=== PATIENT | female | born 1935 | race Caucasian/White ===

== ENCOUNTER 2018-12-28 14:56 | Emergency (ER) | payer MEDICARE, OTHER ==
[~2018-12-28] VITALS: Ht 172.7 cm; Wt 84.4 kg
[~2018-12-28 14:56] MED LIST: AMLODIPINE BESY10 MG PO; CLONIDINE HCL0.1 MG PO; LASIX20 MG PO; LEVOTHYROXINE50 MCG PO; LOSARTAN POTASS25 MG PO; LOSARTAN-HCTZ1 EACH PO; SERTRALINE HCL100 MG PO
--- NOTE | 2018-12-28 16:26 | Diagnostic Imaging Report ---
EXAMINATION: CHEST 2 VIEWS INDICATION: Cough, congestion, fever, chills, sore throat ^ORDER PLACED BY ^[id number] ^1550 ^Y COMPARISON: None FINDINGS: PA and lateral views TUBES and LINES: None. LUNGS: Lungs are well inflated. There is no evidence of pneumonia or pulmonary edema. PLEURA: No pleural effusion or pneumothorax. HEART AND MEDIASTINUM: The cardiomediastinal silhouette is unremarkable.. BONES AND SOFT TISSUES: No focal osseous lesions. Soft tissues are unremarkable. UPPER ABDOMEN: No free air under the diaphragm. IMPRESSION: No acute thoracic abnormality. Signed by: Dr. Damian Fisher MD on 12/28/2018 4:22 PM
[2018-12-28 16:38] LABS: BASOPHILS % 0.3 % (0.0-1.0); EOSINOPHILS # (AUTO) 0.1 (0.0-0.4); EOSINOPHILS % 0.6 % (0.0-6.0); HEMATOCRIT 40.1 % (34.2-44.1); HEMOGLOBIN 13.2 g/dL (12.0-16.0); LYMPHOCYTES # (AUTO) 1.7 (1.0-3.2); LYMPHOCYTES % 19.1 % (18.0-39.1); MEAN CORPUSCULAR HEMOGLOBIN 29.3 pg (28-32); MEAN CORPUSCULAR HGB CONC 32.9 g/dL (31-35); MEAN CORPUSCULAR VOLUME 89.1 fL (81-99); MONOCYTES # (AUTO) 1.3 (0.2-0.8); MONOCYTES % 14.4 % (4.4-11.3); NEUTROPHILS # (AUTO) 5.9 (2.1-6.9); NEUTROPHILS % 65.4 % (38.7-80.0); PLATELET COUNT 207 x10e3/uL (140-360); RED CELL DISTRIBUTION WIDTH 12.6 % (11.7-14.4)
[2018-12-28 16:51] LABS: INR 1.03
[2018-12-28 16:52] LABS: PARTIAL THROMBOPLASTIN TIME 33.2 seconds (23.8-35.5)
[2018-12-28 17:03] LABS: ALBUMIN 3.2 g/dL (3.5-5.0); ALBUMIN/GLOBULIN RATIO 0.8 (0.8-2.0); ANION GAP 12.7 mmol/L (8-16); CALCIUM 9.9 mg/dL (8.4-10.2); CREATININE, SERUM 0.99 mg/dL (0.57-1.11); POTASSIUM 3.7 mmol/L (3.5-5.1)
[2018-12-28 17:10] LABS: CREATINE KINASE MB 2.5 ng/mL (0-5.0)
[2018-12-28 17:14] LABS: INFLUENZAE A&B ANTIGEN (RAPID) NEGATIVE (NEGATIVE); STREPTOCOCCUS GRP A ANTIGEN NEGATIVE (NEGATIVE)
[2018-12-28 18:28] VITALS: BP 170/77
[2018-12-28] MEDS ORDERED: PREDNISONE 20 MG TAB PO ONE (18:30)
== END 2018-12-28 18:34 | disposition home or self-care (01) ==
LOC: ER 14:56
DX: R05 Cough (principal); J02.9 Acute pharyngitis, unspecified; E07.9 Disorder of thyroid, unspecified
CPT/HCPCS: 36415; 71046; 80053; 82550; 82553; 83518; 84484; 85025; 85610; 85730; 87070; 87400; 93005; 99283; J7512

== ENCOUNTER 2019-08-05 12:49 | Emergency (ER) | payer OTHER ==
[~2019-08-05] VITALS: Ht 172.7 cm; Wt 84.4 kg
--- OUTSIDE RECORDS SUMMARY | 2019-08-05 12:52 | XMS REPORT ---
Author Author [facility] Address Unknown Phone Unavailable Care Team Providers [employer] Operator Name Role Phone Shakeel GAONA Unavailable Unavailable Problems This patient has no known problems. Allergies, Adverse Reactions, Alerts This patient has no known allergies or adverse reactions. Medications This patient has no known medications. Results Test Description Test Time Test Comments Text Results Atomic Results Result Comments CHEST 2 VIEWS 2018-12-28 16:19:00 [place] [id number] Patient Name: GERALDINE HEBERT MR #: [id number] : 1935 Age/Sex: 83/F Req #: [id number] Adm Physician: Ordered by: EWA BALL NP Report #: [id number] Location: ER Room/Bed: Procedure: [id number] DX/CHEST 2 VIEWS Exam Date: 12/28/18 Exam Time: 1550 REPORT STATUS: Signed EXAMINATION: CHEST 2 VIEWS INDICATION: Cough, conge stion, fever, chills, sore throat ORDER PLACED BY [id number] 1550 Y COMPARISON: None FINDINGS: PA and lateral views TUBES and LINES: None. LUNGS: Lungs are well inflated. There is no evidence of pneumonia or pulmonary edema. PLEURA: No pleural effusion or pneumothorax. HEART AND MEDIASTINUM: The cardiomediastinal silhouette is unremarkable.. BONES AND SOFT TISSUES: No focal osseous lesions. Soft tissues are unremarkable. UPPER ABDOMEN: No free air under the diaphragm. IMPRESSION: No acute thoracic abnormality. Signed by: Dr. Ed Fisher MD on 12/28/2018 4:22 PM Dictated By: ED FISHER MD 21 Transcribed By: MITALI on 12/28/181621 COPY TO: EWA BALL NP
[2019-08-05] MEDS ORDERED: SODIUM CHLORIDE 0.9% 1000ML 1,000 ML IV STA (13:04)
--- NOTE | 2019-08-05 14:36 | Diagnostic Imaging Report ---
Chest, 1 view, 08/05/2019. History: Hypertension. Comparison: 12/28/2018. Findings: The cardiomediastinal silhouette and pulmonary vasculature are within normal limits for a portable exam. There is no focal consolidation or pleural effusion. Mild degenerative changes are noted in the shoulders. There are no acute osseous or soft tissue abnormalities. Impression: No acute cardiopulmonary abnormality. Signed by: Karl Regan on 08/05/2019 2:32 PM
[2019-08-05 14:40] LABS: BASOPHILS % 0.3 % (0.0-1.0); EOSINOPHILS # (AUTO) 0.1 (0.0-0.4); HEMATOCRIT 42.8 % (34.2-44.1); HEMOGLOBIN 13.8 g/dL (12.0-16.0); LYMPHOCYTES # (AUTO) 1.8 (1.0-3.2); LYMPHOCYTES % 29.8 % (18.0-39.1); MEAN CORPUSCULAR HEMOGLOBIN 29.1 pg (28-32); MEAN CORPUSCULAR HGB CONC 32.2 g/dL (31-35); MEAN CORPUSCULAR VOLUME 90.1 fL (81-99); MONOCYTES # (AUTO) 0.6 (0.2-0.8); MONOCYTES % 10.5 % (4.4-11.3); NEUTROPHILS # (AUTO) 3.5 (2.1-6.9); NEUTROPHILS % 58.1 % (38.7-80.0); PLATELET COUNT 204 x10e3/uL (140-360); RED BLOOD COUNT 4.75 x10e6/uL (3.6-5.1); RED CELL DISTRIBUTION WIDTH 13.1 % (11.7-14.4)
[2019-08-05 14:49] LABS: INR 0.93
[2019-08-05 14:50] LABS: PARTIAL THROMBOPLASTIN TIME 31.1 seconds (23.8-35.5)
[2019-08-05 14:58] LABS: ALBUMIN 3.8 g/dL (3.5-5.0); ALBUMIN/GLOBULIN RATIO 1.2 (0.8-2.0); ANION GAP 12.5 mmol/L (8-16); CALCIUM 11.3 mg/dL (8.4-10.2); CREATININE, SERUM 0.91 mg/dL (0.57-1.11); MAGNESIUM 2.1 MG/DL (1.3-2.1); POTASSIUM 3.5 mmol/L (3.5-5.1)
[2019-08-05 15:17] LABS: CREATINE KINASE MB 1.7 ng/mL (0-5.0); THYROID STIMULATING HORMONE 0.877 uIU/mL (0.350-4.940)
== END 2019-08-05 16:29 | disposition home or self-care (01) ==
LOC: ER 12:49
DX: M25.471 Effusion, right ankle (principal); I87.2 Venous insufficiency (chronic) (peripheral); I10 Essential (primary) hypertension; Z85.850 Personal history of malignant neoplasm of thyroid
CPT/HCPCS: 36415; 71045; 80053; 82550; 82553; 83690; 83735; 83880; 84443; 84484; 85025; 85610; 85730; 93005; 93970; 99284; J7030

== ENCOUNTER 2021-03-31 19:13 | Inpatient (IN) | payer MEDICARE ==
[~2021-03-31] VITALS: Ht 172.7 cm; Wt 84.4 kg
[2021-03-31 19:28] LABS: BASOPHILS % 0.4 % (0.0-1.0); EOSINOPHILS # (AUTO) 0.1 (0.0-0.4); EOSINOPHILS % 0.9 % (0.0-6.0); HEMATOCRIT 42.7 % (34.2-44.1); HEMOGLOBIN 13.5 g/dL (12.0-16.0); LYMPHOCYTES # (AUTO) 3.8 (1.0-3.2); LYMPHOCYTES % 39.5 % (18.0-39.1); MEAN CORPUSCULAR HEMOGLOBIN 28.6 pg (28-32); MEAN CORPUSCULAR HGB CONC 31.6 g/dL (31-35); MEAN CORPUSCULAR VOLUME 90.5 fL (81-99); MONOCYTES # (AUTO) 0.9 (0.2-0.8); MONOCYTES % 9.2 % (4.4-11.3); NEUTROPHILS # (AUTO) 4.7 (2.1-6.9); NEUTROPHILS % 49.6 % (38.7-80.0); PLATELET COUNT 211 x10e3/uL (140-360); RED BLOOD COUNT 4.72 x10e6/uL (3.6-5.1); RED CELL DISTRIBUTION WIDTH 13.6 % (11.7-14.4)
[2021-03-31 19:44] LABS: INR 0.88; PROTHROMBIN TIME 12.5 seconds (11.9-14.5)
[2021-03-31 19:48] LABS: ALBUMIN 3.9 g/dL (3.5-5.0); ALBUMIN/GLOBULIN RATIO 1.3 (0.8-2.0); ANION GAP 14.2 mmol/L (8-16); CALCIUM 10.5 mg/dL (8.4-10.2); POTASSIUM 4.2 mmol/L (3.5-5.1)
[2021-03-31 19:54] LABS: CREATINE KINASE MB 1.4 ng/mL (0-5.0)
[2021-03-31 22:53] VITALS: BP 166/82
[2021-03-31] MEDS ORDERED: CLONIDINE HCL 0.1 MG TAB PO SCH (23:00)
[2021-03-31] MEDS ORDERED: CLONIDINE HCL0.2 MG PO (23:13)
[2021-03-31] MEDS ORDERED: LASIX20 MG PO (23:14)
[2021-03-31] MEDS ORDERED: SERTRALINE HCL50 MG PO (23:19)
[2021-03-31] MEDS: Pantoprazole IV 40 MG in SODIUM CHLORIDE 0.9% 50ML 50 ML IV SCH (23:44)
[2021-04-01] VITALS (7 sets, daily range): BP systolic 150–166; BP diastolic 64–82
[2021-04-01 02:39] LABS: BASOPHILS % 0.3 % (0.0-1.0); EOSINOPHILS % 0.2 % (0.0-6.0); HEMATOCRIT 36.3 % (34.2-44.1); HEMOGLOBIN 11.3 g/dL (12.0-16.0); LYMPHOCYTES # (AUTO) 1.7 (1.0-3.2); LYMPHOCYTES % 18.4 % (18.0-39.1); MEAN CORPUSCULAR HEMOGLOBIN 28.3 pg (28-32); MEAN CORPUSCULAR HGB CONC 31.1 g/dL (31-35); MONOCYTES # (AUTO) 0.6 (0.2-0.8); MONOCYTES % 6.9 % (4.4-11.3); NEUTROPHILS # (AUTO) 6.9 (2.1-6.9); NEUTROPHILS % 73.7 % (38.7-80.0); PLATELET COUNT 166 x10e3/uL (140-360); RED BLOOD COUNT 3.99 x10e6/uL (3.6-5.1); RED CELL DISTRIBUTION WIDTH 13.7 % (11.7-14.4)
[2021-04-01] MEDS ORDERED: ONDANSETRON HCL INJ 2MG/ML 2ML 2 MG/ML VIAL IV PRN (03:00)
[2021-04-01] MEDS: Pantoprazole IV 40 MG in SODIUM CHLORIDE 0.9% 50ML 50 ML IV SCH ×5 (03:30→23:45)
[2021-04-01] MEDS ORDERED: BISACODYL 5 MG TAB EC PO ONE ×2 (04:00→05:00)
[2021-04-01 04:03] LABS: ALBUMIN 3.3 g/dL (3.5-5.0); ALBUMIN/GLOBULIN RATIO 1.3 (0.8-2.0); ANION GAP 11.5 mmol/L (8-16); CREATININE, SERUM 0.9 mg/dL (0.57-1.11); POTASSIUM 4.5 mmol/L (3.5-5.1)
[2021-04-01] MEDS ORDERED: ASPIRIN81 MG PO (04:14)
[2021-04-01] MEDS: LEVOTHYROXINE SODIUM 100 MCG TAB PO SCH (05:14)
[2021-04-01] MEDS: LEVOTHYROXINE SODIUM 75 MCG TAB PO SCH (05:14)
[2021-04-01] MEDS ORDERED: CITRATE OF MAGNESIA 300ML BOTTLE PO ONE ×2 (07:00→08:00)
[2021-04-01] MEDS: CLONIDINE HCL 0.2 MG TAB PO SCH ×3 (08:08→20:34)
[2021-04-01 10:39] LABS: HEMATOCRIT 34.8 % (34.2-44.1); HEMOGLOBIN 10.8 g/dL (12.0-16.0)
[2021-04-01 12:31] LABS: HEMATOCRIT 32.9 % (34.2-44.1); HEMOGLOBIN 10.4 g/dL (12.0-16.0)
[2021-04-01] MEDS ORDERED: PROPOFOL IV EMULSION 10 MG/ML 20 ML VIAL ONE (12:33)
[2021-04-01] MEDS ORDERED: POVIDONE IODINE 0.05% 0.05 % ML PO ONE (12:33)
[2021-04-01] MEDS ORDERED: ATROPINE SULFATE 1 MG/ML VIAL ONE (12:33)
[2021-04-01] MEDS ORDERED: SIMETHICONE 40 MG/0.6 ML BTL ONE (17:01)
[2021-04-01 19:52] LABS: HEMATOCRIT 31.1 % (34.2-44.1); HEMOGLOBIN 9.7 g/dL (12.0-16.0)
[2021-04-01] MEDS ORDERED: SERTRALINE HCL 100 MG TAB PO SCH (21:00)
[2021-04-01] MEDS ORDERED: SODIUM CHLORIDE 0.9% 250ML 250 ML ONE (22:05)
[2021-04-02] MEDS: Pantoprazole IV 40 MG in SODIUM CHLORIDE 0.9% 50ML 50 ML IV SCH ×4 (04:45→20:44)
[2021-04-02 05:06] LABS: HEMATOCRIT 24.6 % (34.2-44.1); HEMOGLOBIN 7.8 g/dL (12.0-16.0)
[2021-04-02] MEDS: LEVOTHYROXINE SODIUM 100 MCG TAB PO SCH (05:27)
[2021-04-02] MEDS: LEVOTHYROXINE SODIUM 75 MCG TAB PO SCH (05:27)
[2021-04-02] MEDS ORDERED: SODIUM CHLORIDE 0.9% 250ML 250 ML IV ONE (07:30)
[2021-04-02 08:21] LABS: INR 1.11; PARTIAL THROMBOPLASTIN TIME 27.5 seconds (23.8-35.5); PROTHROMBIN TIME 14.9 seconds (11.9-14.5)
[2021-04-02] MEDS ORDERED: METHYLPREDNISOLONE SOD SUCC 40 MG/ML VIAL 1ML IV ONE (08:30)
[2021-04-02] MEDS ORDERED: DIPHENHYDRAMINE HCL INJ 50 MG/ML VIAL IV ONE (08:30)
[2021-04-02] MEDS: CLONIDINE HCL 0.2 MG TAB PO SCH ×3 (09:00→20:45)
[2021-04-02] MEDS ORDERED: HEPARIN SOD (PORCINE) 1000 UNIT/ML SDV ONE (11:30)
[2021-04-02] MEDS ORDERED: METHYLPREDNISOLONE SOD SUCC 40 MG/ML VIAL 1ML IV SCH ×2 (12:30→17:00)
[2021-04-02 13:29] LABS: HEMOGLOBIN 8.5 g/dL (12.0-16.0)
[2021-04-02] MEDS ORDERED: SODIUM CHLORIDE 0.9% 250ML 250 ML ONE (13:52)
[2021-04-03] MEDS ORDERED: PREDNISONE 20 MG TAB PO ONE
[2021-04-03] MEDS: HYDRALAZINE HCL 20 MG/ML VIAL IV PRN (00:19)
[2021-04-03 00:27] LABS: HEMATOCRIT 30.9 % (34.2-44.1)
[2021-04-03] MEDS ORDERED: PHYTONADIONE 10MG/ML 20 MG in SODIUM CHLORIDE 0.9% 100 ML IV ONE ×2 (00:45→09:00)
[2021-04-03] MEDS ORDERED: PHYTONADIONE 10 MG/ML AMP IV ONE (00:45)
[2021-04-03] MEDS: Pantoprazole IV 40 MG in SODIUM CHLORIDE 0.9% 50ML 50 ML IV SCH ×5 (01:12→20:45)
[2021-04-03 05:11] LABS: HEMATOCRIT 30.6 % (34.2-44.1); HEMOGLOBIN 10.1 g/dL (12.0-16.0); LYMPHOCYTES # (AUTO) 0.9 (1.0-3.2); LYMPHOCYTES % 11.1 % (18.0-39.1); MEAN CORPUSCULAR HEMOGLOBIN 28.8 pg (28-32); MEAN CORPUSCULAR VOLUME 87.2 fL (81-99); MONOCYTES # (AUTO) 0.2 (0.2-0.8); MONOCYTES % 2.4 % (4.4-11.3); NEUTROPHILS # (AUTO) 7.2 (2.1-6.9); NEUTROPHILS % 85.5 % (38.7-80.0); PLATELET COUNT 179 x10e3/uL (140-360); RED BLOOD COUNT 3.51 x10e6/uL (3.6-5.1)
[2021-04-03 05:22] LABS: BLOOD UREA NITROGEN 21 mg/dL (7-26); BUN/CREATININE RATIO 26 (6-25); CALCIUM 9.5 mg/dL (8.4-10.2); CARBON DIOXIDE 21 mmol/L (22-29); CHLORIDE 112 mmol/L (98-107); CREATININE, SERUM 0.81 mg/dL (0.57-1.11); EST GLOMERULAR FILTRATION RATE > 60 ML/MIN (60-); GLUCOSE 149 mg/dL (74-118); SODIUM 143 mmol/L (136-145)
[2021-04-03] MEDS: LEVOTHYROXINE SODIUM 75 MCG TAB PO SCH (05:57)
[2021-04-03] MEDS: LEVOTHYROXINE SODIUM 100 MCG TAB PO SCH (05:57)
[2021-04-03] MEDS: CLONIDINE HCL 0.2 MG TAB PO SCH ×3 (08:38→21:00)
[2021-04-03] MEDS ORDERED: PHYTONADIONE 10 MG/ML AMP IV SCH (09:00)
[2021-04-03] MEDS ORDERED: DIPHENHYDRAMINE HCL 25 MG CAP PO ONE (10:15)
[2021-04-03 13:03] LABS: HEMATOCRIT 31.4 % (34.2-44.1); HEMOGLOBIN 10.1 g/dL (12.0-16.0)
[2021-04-04] MEDS ORDERED: SODIUM CHLORIDE 0.9% 100 ML ONE ×2 (01:00→17:01)
[2021-04-04] MEDS ORDERED: PHYTONADIONE 10MG/ML 2 ML ONE (01:00)
[2021-04-04] MEDS: Pantoprazole IV 40 MG in SODIUM CHLORIDE 0.9% 50ML 50 ML IV SCH ×5 (01:45→21:58)
[2021-04-04] MEDS: LEVOTHYROXINE SODIUM 75 MCG TAB PO SCH (06:00)
[2021-04-04] MEDS: LEVOTHYROXINE SODIUM 100 MCG TAB PO SCH (06:00)
[2021-04-04] MEDS: CLONIDINE HCL 0.2 MG TAB PO SCH ×3 (09:00→21:41)
[2021-04-04] MEDS ORDERED: HYDROCORTISONE SOD SUCCINATE IV ONE ×2 (11:00→15:00)
[2021-04-04] MEDS ORDERED: SODIUM CHLORIDE 0.9% IV ONE ×2 (11:00→15:00)
[2021-04-04] MEDS ORDERED: HYDROCORTISONE SOD SUCCINATE 100 MG VIAL ONE (11:07)
[2021-04-04] MEDS ORDERED: HYDROCORTISONE SOD SUCCINATE 250 MG VIAL IV ONE ×2 (11:45→16:00)
[2021-04-04 12:21] LABS: HEMATOCRIT 26.1 % (34.2-44.1); HEMOGLOBIN 8.6 g/dL (12.0-16.0)
[2021-04-04] MEDS ORDERED: DIPHENHYDRAMINE HCL INJ 50 MG/ML VIAL IV ONE (16:00)
[2021-04-04 16:22] VITALS: BP 123/54
[2021-04-04 16:27] LABS: HEMATOCRIT 31.2 % (34.2-44.1)
[2021-04-04] MEDS ORDERED: IOPAMIDOL 370 MG/ML 200 ML INFUS..BTL INJ ONE (17:01)
[2021-04-04 18:26] LABS: HEMATOCRIT 26.3 % (34.2-44.1); HEMOGLOBIN 8.4 g/dL (12.0-16.0)
[2021-04-04 19:40] VITALS: BP 145/61
[2021-04-04 20:25] VITALS: BP 145/61
[2021-04-04 23:37] VITALS: BP 146/66
[2021-04-05] VITALS (8 sets, daily range): BP systolic 126–173; BP diastolic 50–71
[2021-04-05 00:36] LABS: HEMATOCRIT 27.4 % (34.2-44.1); HEMOGLOBIN 8.6 g/dL (12.0-16.0)
[2021-04-05] MEDS: Pantoprazole IV 40 MG in SODIUM CHLORIDE 0.9% 50ML 50 ML IV SCH (04:22)
[2021-04-05 05:38] LABS: HEMATOCRIT 24.2 % (34.2-44.1); HEMOGLOBIN 7.7 g/dL (12.0-16.0)
[2021-04-05] MEDS: LEVOTHYROXINE SODIUM 75 MCG TAB PO SCH (06:04)
[2021-04-05] MEDS: LEVOTHYROXINE SODIUM 100 MCG TAB PO SCH (06:04)
[2021-04-05 06:09] LABS: INR 1.09; PROTHROMBIN TIME 14.8 seconds (11.9-14.5)
[2021-04-05 06:11] LABS: % IRON SATURATION 10 % (15-50); IRON 21 ug/dL (50-170); TOTAL IRON BINDING CAPACITY 218 ug/dL (261-478); TRANSFERRIN 156 mg/dL (180-382)
[2021-04-05] MEDS: IRON SUCROSE 100 MG in SODIUM CHLORIDE 0.9% 100 ML 100 ML IV SCH (10:05)
[2021-04-05] MEDS: CLONIDINE HCL 0.2 MG TAB PO SCH ×3 (10:05→20:27)
[2021-04-05] MEDS: ALPRAZOLAM 0.25 MG TAB PO PRN (14:10)
[2021-04-05 15:30] LABS: HEMATOCRIT 26.4 % (34.2-44.1); HEMOGLOBIN 8.4 g/dL (12.0-16.0)
[2021-04-05] MEDS ORDERED: PHYTONADIONE 10MG/ML 20 MG in SODIUM CHLORIDE 0.9% 100 ML IV ONE (23:45)
[2021-04-05] MEDS ORDERED: PHYTONADIONE 10 MG/ML AMP IV ONE (23:45)
[2021-04-06] VITALS (7 sets, daily range): BP systolic 128–166; BP diastolic 63–66
[2021-04-06 05:11] LABS: BASOPHILS % 0.3 % (0.0-1.0); EOSINOPHILS # (AUTO) 0.2 (0.0-0.4); EOSINOPHILS % 2.5 % (0.0-6.0); HEMATOCRIT 23.7 % (34.2-44.1); HEMOGLOBIN 7.5 g/dL (12.0-16.0); LYMPHOCYTES # (AUTO) 1.4 (1.0-3.2); LYMPHOCYTES % 19.9 % (18.0-39.1); MEAN CORPUSCULAR HEMOGLOBIN 29.3 pg (28-32); MEAN CORPUSCULAR HGB CONC 31.6 g/dL (31-35); MEAN CORPUSCULAR VOLUME 92.6 fL (81-99); MONOCYTES # (AUTO) 0.9 (0.2-0.8); MONOCYTES % 12.7 % (4.4-11.3); NEUTROPHILS # (AUTO) 4.5 (2.1-6.9); NEUTROPHILS % 63.9 % (38.7-80.0); PLATELET COUNT 162 x10e3/uL (140-360); RED BLOOD COUNT 2.56 x10e6/uL (3.6-5.1); RED CELL DISTRIBUTION WIDTH 14.7 % (11.7-14.4)
[2021-04-06 05:27] LABS: ANION GAP 9.1 mmol/L (8-16); CALCIUM 9.5 mg/dL (8.4-10.2); CREATININE, SERUM 0.93 mg/dL (0.57-1.11); POTASSIUM 4.1 mmol/L (3.5-5.1)
[2021-04-06] MEDS: LEVOTHYROXINE SODIUM 100 MCG TAB PO SCH (05:39)
[2021-04-06] MEDS: LEVOTHYROXINE SODIUM 75 MCG TAB PO SCH (05:39)
[2021-04-06] MEDS ORDERED: PHYTONADIONE 10MG/ML 20 MG in SODIUM CHLORIDE 0.9% 50ML 50 ML IV ONE (07:30)
[2021-04-06] MEDS ORDERED: PHYTONADIONE 10 MG/ML AMP IV ONE (07:30)
[2021-04-06] MEDS: PANTOPRAZOLE SOD 40 MG TABEC PO SCH (08:35)
[2021-04-06] MEDS: CLONIDINE HCL 0.2 MG TAB PO SCH ×3 (08:36→21:51)
[2021-04-06] MEDS: ALPRAZOLAM 0.25 MG TAB PO PRN (08:36)
[2021-04-06] MEDS ORDERED: IRON SUCROSE 100 MG in SODIUM CHLORIDE 0.9% 100 ML 100 ML IV SCH (09:00)
[2021-04-06] MEDS: NIFEDIPINE CR 30 MG TAB PO SCH (11:03)
[2021-04-06] MEDS: IRON SUCROSE 100 MG in SODIUM CHLORIDE 0.9% 100 ML 100 ML IV SCH (11:03)
[2021-04-07] VITALS (7 sets, daily range): BP systolic 132–178; BP diastolic 53–68
[2021-04-07] MEDS ORDERED: PHYTONADIONE 10MG/ML 20 MG in SODIUM CHLORIDE 0.9% 100 ML 100 ML IV ONE (00:20)
[2021-04-07] MEDS ORDERED: PHYTONADIONE 10 MG/ML AMP IV ONE (00:20)
[2021-04-07] MEDS ORDERED: PHYTONADIONE 10MG/ML 20 MG in SODIUM CHLORIDE 0.9% 100 ML IV ONE (00:30)
[2021-04-07 05:29] LABS: BASOPHILS % 0.2 % (0.0-1.0); EOSINOPHILS # (AUTO) 0.3 (0.0-0.4); EOSINOPHILS % 3.3 % (0.0-6.0); HEMATOCRIT 24.9 % (34.2-44.1); HEMOGLOBIN 7.9 g/dL (12.0-16.0); LYMPHOCYTES % 22.9 % (18.0-39.1); MEAN CORPUSCULAR HEMOGLOBIN 29.9 pg (28-32); MEAN CORPUSCULAR HGB CONC 31.7 g/dL (31-35); MEAN CORPUSCULAR VOLUME 94.3 fL (81-99); MONOCYTES % 11.2 % (4.4-11.3); NEUTROPHILS # (AUTO) 5.3 (2.1-6.9); NEUTROPHILS % 61.6 % (38.7-80.0); PLATELET COUNT 172 x10e3/uL (140-360); RED BLOOD COUNT 2.64 x10e6/uL (3.6-5.1)
[2021-04-07] MEDS: LEVOTHYROXINE SODIUM 100 MCG TAB PO SCH (05:58)
[2021-04-07] MEDS: LEVOTHYROXINE SODIUM 75 MCG TAB PO SCH (05:58)
[2021-04-07 06:00] LABS: ANION GAP 7.6 mmol/L (8-16); CREATININE, SERUM 0.84 mg/dL (0.57-1.11); POTASSIUM 3.6 mmol/L (3.5-5.1)
[2021-04-07] MEDS ORDERED: CYANOCOBALAMIN INJ 1,000 MCG/ML VIAL IM ONE (08:00)
[2021-04-07] MEDS: PANTOPRAZOLE SOD 40 MG TABEC PO SCH (08:24)
[2021-04-07] MEDS: NIFEDIPINE CR 30 MG TAB PO SCH (08:25)
[2021-04-07] MEDS: CLONIDINE HCL 0.2 MG TAB PO SCH ×3 (08:25→21:01)
[2021-04-07] MEDS: IRON SUCROSE 100 MG in SODIUM CHLORIDE 0.9% 100 ML 100 ML IV SCH (10:38)
[2021-04-07 17:54] LABS: HEMATOCRIT 25.9 % (34.2-44.1); HEMOGLOBIN 8.2 g/dL (12.0-16.0)
[2021-04-07] MEDS: SERTRALINE HCL 50 MG TAB PO PRN (21:45)
[2021-04-07] MEDS ORDERED: SODIUM CHLORIDE 0.9% 250ML 0 ML ONE (22:14)
[2021-04-08] VITALS (8 sets, daily range): BP systolic 145–167; BP diastolic 62–86
[2021-04-08] MEDS ORDERED: HYDROCORTISONE ACETATE 25 MG/SUPP.RECT SUPP RC STA (00:22)
[2021-04-08 05:45] LABS: BASOPHILS % 0.2 % (0.0-1.0); EOSINOPHILS # (AUTO) 0.2 (0.0-0.4); EOSINOPHILS % 3.2 % (0.0-6.0); LYMPHOCYTES # (AUTO) 1.3 (1.0-3.2); LYMPHOCYTES % 19.9 % (18.0-39.1); MEAN CORPUSCULAR VOLUME 93.8 fL (81-99); MONOCYTES # (AUTO) 0.8 (0.2-0.8); MONOCYTES % 12.2 % (4.4-11.3); NEUTROPHILS % 63.9 % (38.7-80.0); PLATELET COUNT 141 x10e3/uL (140-360); RED BLOOD COUNT 2.24 x10e6/uL (3.6-5.1)
[2021-04-08 05:48] LABS: HEMOGLOBIN 6.5 g/dL (12.0-16.0)
[2021-04-08] MEDS: LEVOTHYROXINE SODIUM 75 MCG TAB PO SCH (05:54)
[2021-04-08] MEDS: LEVOTHYROXINE SODIUM 100 MCG TAB PO SCH (05:54)
[2021-04-08 06:42] LABS: HEMOGLOBIN 6.8 g/dL (12.0-16.0)
[2021-04-08 06:43] LABS: HEMATOCRIT 21.6 % (34.2-44.1)
[2021-04-08] MEDS ORDERED: SODIUM CHLORIDE 0.9% 250ML 250 ML IV ONE (06:45)
[2021-04-08] MEDS: CLONIDINE HCL 0.2 MG TAB PO SCH ×3 (08:05→21:08)
[2021-04-08] MEDS: PANTOPRAZOLE SOD 40 MG TABEC PO SCH (08:05)
[2021-04-08] MEDS: NIFEDIPINE CR 30 MG TAB PO SCH (08:05)
[2021-04-08] MEDS: HYDROCORTISONE ACETATE 25 MG/SUPP.RECT SUPP RC SCH ×2 (08:05→16:19)
[2021-04-08] MEDS: IRON SUCROSE 100 MG in SODIUM CHLORIDE 0.9% 100 ML 100 ML IV SCH (09:07)
[2021-04-08] MEDS ORDERED: SODIUM CHLORIDE 0.9% 250ML 250 ML ONE (11:16)
[2021-04-08] MEDS ORDERED: METHYLPREDNISOLONE SOD SUCC 40 MG/ML VIAL 1ML IV NR ×2 (13:45→15:00)
[2021-04-08] MEDS: ALPRAZOLAM 0.25 MG TAB PO PRN (15:43)
[2021-04-08] MEDS: FUROSEMIDE INJ 10 MG/ML 2 ML VIAL IV PRN ×2 (15:49→20:07)
[2021-04-08] MEDS ORDERED: SODIUM CHLORIDE 0.9% 100 ML ONE (17:43)
[2021-04-08] MEDS ORDERED: IOPAMIDOL 370 MG/ML 200 ML INFUS..BTL INJ ONE (17:43)
[2021-04-08] MEDS ORDERED: DIPHENHYDRAMINE HCL INJ 50 MG/ML VIAL IV ONE (17:45)
[2021-04-08] MEDS ORDERED: DIPHENHYDRAMINE HCL INJ 50 MG/ML VIAL ONE (17:49)
[2021-04-09] VITALS (8 sets, daily range): BP systolic 144–182; BP diastolic 62–82
[2021-04-09] MEDS: LEVOTHYROXINE SODIUM 75 MCG TAB PO SCH (03:56)
[2021-04-09] MEDS: LEVOTHYROXINE SODIUM 100 MCG TAB PO SCH (03:56)
[2021-04-09 07:18] LABS: BASOPHILS % 0.2 % (0.0-1.0); EOSINOPHILS % 0.2 % (0.0-6.0); HEMATOCRIT 33.2 % (34.2-44.1); HEMOGLOBIN 10.7 g/dL (12.0-16.0); LYMPHOCYTES # (AUTO) 1.3 (1.0-3.2); LYMPHOCYTES % 14.1 % (18.0-39.1); MEAN CORPUSCULAR HGB CONC 32.2 g/dL (31-35); MONOCYTES % 11.3 % (4.4-11.3); NEUTROPHILS # (AUTO) 6.6 (2.1-6.9); NEUTROPHILS % 73.4 % (38.7-80.0); PLATELET COUNT 185 x10e3/uL (140-360); RED BLOOD COUNT 3.69 x10e6/uL (3.6-5.1); RED CELL DISTRIBUTION WIDTH 16.4 % (11.7-14.4)
[2021-04-09] MEDS: PANTOPRAZOLE SOD 40 MG TABEC PO SCH (07:20)
[2021-04-09 07:37] LABS: PROTHROMBIN TIME 13.8 seconds (11.9-14.5)
[2021-04-09 07:42] LABS: ANION GAP 12.3 mmol/L (8-16); CALCIUM 10.3 mg/dL (8.4-10.2); CREATININE, SERUM 0.92 mg/dL (0.57-1.11); PARTIAL THROMBOPLASTIN TIME 29.1 seconds (23.8-35.5); POTASSIUM 3.3 mmol/L (3.5-5.1)
[2021-04-09 07:49] LABS: BLEEDING TIME 2.5 MINUTES (1-7)
[2021-04-09] MEDS: NIFEDIPINE CR 30 MG TAB PO SCH (09:00)
[2021-04-09] MEDS: HYDROCORTISONE ACETATE 25 MG/SUPP.RECT SUPP RC SCH ×2 (09:00→17:00)
[2021-04-09] MEDS: CLONIDINE HCL 0.2 MG TAB PO SCH (09:00)
[2021-04-09] MEDS: IRON SUCROSE 100 MG in SODIUM CHLORIDE 0.9% 100 ML 100 ML IV SCH (09:00)
[2021-04-09] MEDS ORDERED: CLONIDINE HCL 0.2 MG/24 HR 1 EA PATCH TOP SCH (09:30)
[2021-04-09] MEDS: SOD CHL 0.45%/POT CHL 20MEQ 1,000 ML IV SCH ×2 (13:05→19:45)
[2021-04-09] MEDS: ALPRAZOLAM 0.25 MG TAB PO PRN (14:00)
[2021-04-09] MEDS: SERTRALINE HCL 50 MG TAB PO PRN (14:00)
[2021-04-09] MEDS: HYDRALAZINE HCL 20 MG/ML VIAL IV PRN (21:25)
[2021-04-10] VITALS: BP 164/69
[2021-04-10] MEDS: HYDRALAZINE HCL 20 MG/ML VIAL IV PRN ×2 (01:30→05:59)
[2021-04-10 04:00] VITALS: BP 167/55
[2021-04-10 04:55] LABS: BASOPHILS % 0.3 % (0.0-1.0); EOSINOPHILS # (AUTO) 0.3 (0.0-0.4); EOSINOPHILS % 2.7 % (0.0-6.0); HEMATOCRIT 33.1 % (34.2-44.1); HEMOGLOBIN 10.6 g/dL (12.0-16.0); LYMPHOCYTES # (AUTO) 1.4 (1.0-3.2); LYMPHOCYTES % 14.4 % (18.0-39.1); MEAN CORPUSCULAR HEMOGLOBIN 28.8 pg (28-32); MEAN CORPUSCULAR VOLUME 89.9 fL (81-99); MONOCYTES # (AUTO) 1.1 (0.2-0.8); MONOCYTES % 11.5 % (4.4-11.3); NEUTROPHILS # (AUTO) 6.8 (2.1-6.9); NEUTROPHILS % 70.6 % (38.7-80.0); PLATELET COUNT 194 x10e3/uL (140-360); RED BLOOD COUNT 3.68 x10e6/uL (3.6-5.1); RED CELL DISTRIBUTION WIDTH 16.4 % (11.7-14.4)
[2021-04-10 05:16] LABS: ANION GAP 11.3 mmol/L (8-16); CALCIUM 9.3 mg/dL (8.4-10.2); CREATININE, SERUM 0.77 mg/dL (0.57-1.11); POTASSIUM 3.3 mmol/L (3.5-5.1)
[2021-04-10] MEDS: LEVOTHYROXINE SODIUM 75 MCG TAB PO SCH (05:58)
[2021-04-10] MEDS: LEVOTHYROXINE SODIUM 100 MCG TAB PO SCH (05:58)
[2021-04-10] MEDS: SOD CHL 0.45%/POT CHL 20MEQ 1,000 ML IV SCH (06:06)
[2021-04-10 07:20] VITALS: BP 177/57
[2021-04-10] MEDS: PANTOPRAZOLE SOD 40 MG TABEC PO SCH (07:30)
[2021-04-10] MEDS: NIFEDIPINE CR 30 MG TAB PO SCH ×2 (08:43→11:03)
[2021-04-10] MEDS: HYDROCORTISONE ACETATE 25 MG/SUPP.RECT SUPP RC SCH (08:44)
[2021-04-10 08:45] VITALS: BP 177/57
[2021-04-10] MEDS ORDERED: POTASSIUM CHLORIDE 10MEQ EA PO ONE (09:15)
[2021-04-10 11:39] VITALS: BP 175/92
[2021-04-10] MEDS ORDERED: ONDANSETRON HCL 4 MG ORAL DISINTEGRATING TAB PO PRN (13:00)
[2021-04-10] MEDS ORDERED: K-DUR10 MEQ PO (14:14)
[2021-04-10] MEDS ORDERED: HEMOCYTE PLUS1 EACH PO (14:15)
[2021-04-10] MEDS ORDERED: NIFEDIPINE ER30 M1 PO (14:15)
[2021-04-10] MEDS ORDERED: COLACE100 MG PO (14:15)
== END 2021-04-10 14:48 | disposition home or self-care (01) | DRG 378 ==
LOC: ER 21:02 → ERHOLD 21:37 → MED/SURG 22:22 → OBSVTOIN 04-02 09:46 → INTOOBSV 04-02 09:46
PROVIDERS: ADMIT Internal Medicine; ATTEND Internal Medicine
PROC: 30233R1 Transfusion of Nonautologous Platelets into Peripheral Vein, Percutaneous Approach (ICD-10-PCS; 2021-04-01)
PROC: 0W3P8ZZ Control Bleeding in Gastrointestinal Tract, Via Natural or Artificial Opening Endoscopic (ICD-10-PCS; principal; 2021-04-01 16:42)
PROC: 30233N1 Transfusion of Nonautologous Red Blood Cells into Peripheral Vein, Percutaneous Approach (ICD-10-PCS; 2021-04-02)
PROC: 30233L1 Transfusion of Nonautologous Fresh Plasma into Peripheral Vein, Percutaneous Approach (ICD-10-PCS; 2021-04-07)
PROC: 30233K1 Transfusion of Nonautologous Frozen Plasma into Peripheral Vein, Percutaneous Approach (ICD-10-PCS; 2021-04-07)
DX: K57.31 Diverticulosis of large intestine without perforation or abscess with bleeding (principal); D62 Acute posthemorrhagic anemia; K51.011 Ulcerative (chronic) pancolitis with rectal bleeding; I10 Essential (primary) hypertension; K63.5 Polyp of colon; K64.8 Other hemorrhoids; Z95.0 Presence of cardiac pacemaker; E89.0 Postprocedural hypothyroidism; Z85.850 Personal history of malignant neoplasm of thyroid; Z79.82 Long term (current) use of aspirin; Z88.8 Allergy status to other drugs, medicaments and biological substances; Z91.041 Radiographic dye allergy status; I16.0 Hypertensive urgency; F41.9 Anxiety disorder, unspecified; F32.9 Major depressive disorder, single episode, unspecified; Z20.822 Contact with and (suspected) exposure to COVID-19
CPT/HCPCS: 36415; 45378; 71045; 74174; 74176; 78278; 80048; 80053; 82550; 82553; 83540; 84466; 84484; 85002; 85014; 85018; 85025; 85045; 85610; 85730; 86850; 86900; 86920; 86945; 93005; 97139; 99251; 99284; A9512; G0378; J0360; J0461; J1200; J1644; J1720; J1756; J1940; J2920; J3420; J3430; J7050; J7512; P9016; P9017; P9034; Q9967; U0002

== ENCOUNTER 2022-08-07 15:48 | Inpatient (IN) | payer MEDICARE ==
[~2022-08-07] VITALS: Ht 172.7 cm; Wt 84.4 kg
[~2022-08-07 15:48] MED LIST changes: +ASPIRIN81 MG PO; +CLONIDINE HCL0.2 MG PO; +COLACE100 MG PO; +HEMOCYTE PLUS1 EACH PO; +K-DUR10 MEQ PO; +NIFEDIPINE ER30 M1 PO; +SERTRALINE HCL50 MG PO
[2022-08-07 16:32] LABS: BASOPHILS % 0.4 % (0.0-1.0); EOSINOPHILS % 0.3 % (0.0-6.0); HEMATOCRIT 44.3 % (34.2-44.1); HEMOGLOBIN 13.8 g/dL (12.0-16.0); LYMPHOCYTES # (AUTO) 1.4 (1.0-3.2); LYMPHOCYTES % 19.3 % (18.0-39.1); MEAN CORPUSCULAR HGB CONC 31.2 g/dL (31-35); MONOCYTES # (AUTO) 0.6 (0.2-0.8); MONOCYTES % 7.8 % (4.4-11.3); NEUTROPHILS # (AUTO) 5.1 (2.1-6.9); NEUTROPHILS % 71.9 % (38.7-80.0); PLATELET COUNT 217 x10e3/uL (140-360); RED BLOOD COUNT 4.92 x10e6/uL (3.6-5.1); RED CELL DISTRIBUTION WIDTH 12.7 % (11.7-14.4)
[2022-08-07 16:45] LABS: INR 1.02; PROTHROMBIN TIME 14.3 seconds (11.9-14.5)
[2022-08-07 16:46] LABS: PARTIAL THROMBOPLASTIN TIME 29.8 seconds (23.8-35.5)
[2022-08-07 16:55] LABS: ALBUMIN 3.8 g/dL (3.5-5.0); ALBUMIN/GLOBULIN RATIO 1.3 (0.8-2.0); ANION GAP 11.6 mmol/L (8-16); CALCIUM 10.9 mg/dL (8.4-10.2); CREATININE, SERUM 0.92 mg/dL (0.57-1.11); POTASSIUM 4.6 mmol/L (3.5-5.1)
[2022-08-07] MEDS ORDERED: SODIUM CHLORIDE FLUSH 10 ML SYR INJ PRN (17:45)
[2022-08-07] MEDS ORDERED: ONDANSETRON HCL INJ 2MG/ML 2ML 2 MG/ML VIAL IV PRN (17:45)
[2022-08-07 18:08] LABS: CLARITY,URINE SL CLOUDY (CLEAR); COLOR,URINE YELLOW (YELLOW); KETONES,URINE NEGATIVE (NEGATIVE); LEUKOCYTE ESTERASE ,URINE SMALL (NEGATIVE); NITRITE,URINE NEGATIVE (NEGATIVE); PROTEIN,URINE DIPSTICK NEGATIVE (NEGATIVE); URINE UROBILINOGEN 0.2 mg/dL (0.2 - 1)
[2022-08-07 18:12] LABS: BACTERIA,URINE MODERATE /HPF; EPITHELIAL CELLS,URINE MANY /LPF; RENAL EPITHELIAL CELLS,URINE RARE
[2022-08-07] MEDS ORDERED: SERTRALINE HCL 50 MG TAB PO PRN (19:30)
[2022-08-07] MEDS ORDERED: ACETAMINOPHEN 325 MG TAB PO PRN (19:30)
[2022-08-07] MEDS: CLONIDINE HCL 0.2 MG TAB PO SCH (21:00)
[2022-08-07] MEDS ORDERED: AMLODIPINE BESYL5 MG PO (21:38)
[2022-08-07] MEDS: AMLODIPINE BESYLATE 5 MG TAB PO SCH (21:43)
[2022-08-07] MEDS ORDERED: AMLODIPINE BESYLATE 5 MG TAB ONE (21:55)
[2022-08-08 01:12] LABS: CREATINE KINASE MB 1.5 ng/mL (0-5.0)
[2022-08-08] MEDS: AMLODIPINE BESYLATE 5 MG TAB PO SCH ×2 (04:00→17:00)
[2022-08-08] MEDS: CLONIDINE HCL 0.2 MG TAB PO SCH ×3 (04:00→20:17)
[2022-08-08 05:52] LABS: BASOPHILS % 0.3 % (0.0-1.0); EOSINOPHILS # (AUTO) 0.1 (0.0-0.4); EOSINOPHILS % 1.7 % (0.0-6.0); HEMOGLOBIN 13.1 g/dL (12.0-16.0); LYMPHOCYTES # (AUTO) 1.3 (1.0-3.2); MEAN CORPUSCULAR HEMOGLOBIN 28.2 pg (28-32); MEAN CORPUSCULAR HGB CONC 31.2 g/dL (31-35); MEAN CORPUSCULAR VOLUME 90.5 fL (81-99); MONOCYTES # (AUTO) 0.7 (0.2-0.8); MONOCYTES % 12.4 % (4.4-11.3); NEUTROPHILS # (AUTO) 3.7 (2.1-6.9); NEUTROPHILS % 63.3 % (38.7-80.0); PLATELET COUNT 186 x10e3/uL (140-360); RED BLOOD COUNT 4.64 x10e6/uL (3.6-5.1); RED CELL DISTRIBUTION WIDTH 12.7 % (11.7-14.4)
[2022-08-08 06:28] LABS: ALBUMIN 3.2 g/dL (3.5-5.0); CALCIUM 10.5 mg/dL (8.4-10.2); CREATININE, SERUM 0.83 mg/dL (0.57-1.11)
[2022-08-08] MEDS: LEVOTHYROXINE SODIUM 75 MCG TAB PO SCH (07:30)
[2022-08-08] MEDS: LEVOTHYROXINE SODIUM 100 MCG TAB PO SCH (07:30)
[2022-08-08] MEDS: FUROSEMIDE 20 MG TAB PO SCH ×2 (09:00→09:41)
[2022-08-08] MEDS: DOCUSATE SODIUM 100 MG CAP PO SCH ×3 (09:00→18:18)
[2022-08-08] MEDS: IRON-VITAMIN-MINERAL CAPSULE PO SCH ×3 (09:00→18:18)
[2022-08-08] MEDS: NIFEDIPINE CR 30 MG TAB PO SCH ×2 (09:00→09:41)
[2022-08-08] MEDS ORDERED: SODIUM CHLORIDE 0.9% 1000ML 1,000 ML IV SCH (11:45)
[2022-08-08] MEDS ORDERED: MECLIZINE HCL 12.5 MG TAB PO PRN (12:30)
[2022-08-08 14:00] VITALS: BP 162/69
[2022-08-08 16:34] LABS: CREATINE KINASE MB 2.7 ng/mL (0-5.0)
[2022-08-08] MEDS ORDERED: HYDRALAZINE HCL 20 MG/ML VIAL IV PRN (17:15)
[2022-08-08 17:22] VITALS: BP 176/73
[2022-08-08 20:00] VITALS: BP 177/69
[2022-08-08 23:34] VITALS: BP 171/59
[2022-08-09] VITALS (8 sets, daily range): BP systolic 139–181; BP diastolic 59–79
[2022-08-09] MEDS: LEVOTHYROXINE SODIUM 75 MCG TAB PO SCH (07:30)
[2022-08-09] MEDS: LEVOTHYROXINE SODIUM 100 MCG TAB PO SCH (07:30)
[2022-08-09] MEDS: DOCUSATE SODIUM 100 MG CAP PO SCH ×2 (08:45→16:29)
[2022-08-09] MEDS: CLONIDINE HCL 0.2 MG TAB PO SCH ×3 (08:45→20:44)
[2022-08-09] MEDS: IRON-VITAMIN-MINERAL CAPSULE PO SCH ×2 (08:45→16:29)
[2022-08-09] MEDS: AMLODIPINE BESYLATE 5 MG TAB PO SCH ×2 (08:46→08:50)
[2022-08-09 09:23] LABS: BASOPHILS % 0.5 % (0.0-1.0); EOSINOPHILS # (AUTO) 0.1 (0.0-0.4); EOSINOPHILS % 1.5 % (0.0-6.0); HEMATOCRIT 43.7 % (34.2-44.1); HEMOGLOBIN 13.4 g/dL (12.0-16.0); LYMPHOCYTES # (AUTO) 1.6 (1.0-3.2); LYMPHOCYTES % 26.4 % (18.0-39.1); MEAN CORPUSCULAR HEMOGLOBIN 27.9 pg (28-32); MEAN CORPUSCULAR HGB CONC 30.7 g/dL (31-35); MEAN CORPUSCULAR VOLUME 90.9 fL (81-99); MONOCYTES # (AUTO) 0.6 (0.2-0.8); MONOCYTES % 10.9 % (4.4-11.3); NEUTROPHILS # (AUTO) 3.5 (2.1-6.9); NEUTROPHILS % 60.4 % (38.7-80.0); PLATELET COUNT 205 x10e3/uL (140-360); RED BLOOD COUNT 4.81 x10e6/uL (3.6-5.1)
[2022-08-09 09:36] LABS: ANION GAP 11.7 mmol/L (8-16); CALCIUM 9.9 mg/dL (8.4-10.2); CREATININE, SERUM 0.84 mg/dL (0.57-1.11); POTASSIUM 3.7 mmol/L (3.5-5.1)
[2022-08-09 09:50] LABS: CREATINE KINASE MB 4.1 ng/mL (0-5.0)
[2022-08-09] MEDS ORDERED: ONDANSETRON HCL 4 MG ORAL DISINTEGRATING TAB PO PRN (10:30)
[2022-08-10] VITALS: BP 143/56
[2022-08-10 04:00] VITALS: BP 148/62
[2022-08-10 07:47] VITALS: BP 147/73
[2022-08-10 08:12] VITALS: BP 147/73
[2022-08-10] MEDS: CLONIDINE HCL 0.2 MG TAB PO SCH (09:15)
[2022-08-10] MEDS: LEVOTHYROXINE SODIUM 75 MCG TAB PO SCH (09:15)
[2022-08-10] MEDS: DOCUSATE SODIUM 100 MG CAP PO SCH (09:15)
[2022-08-10] MEDS: IRON-VITAMIN-MINERAL CAPSULE PO SCH (09:15)
[2022-08-10] MEDS: LEVOTHYROXINE SODIUM 100 MCG TAB PO SCH (09:15)
== END 2022-08-10 11:00 | disposition home or self-care (01) | DRG 312 ==
LOC: ER 16:01 → ERHOLD 17:47 → MED/SURG2 08-08 14:22 → OBSVTOIN 08-09 10:19
PROVIDERS: ADMIT Internal Medicine; ATTEND Internal Medicine
DX: R55 Syncope and collapse (principal); I49.5 Sick sinus syndrome; T46.1X5A Adverse effect of calcium-channel blockers, initial encounter; Z95.0 Presence of cardiac pacemaker; M06.9 Rheumatoid arthritis, unspecified; E03.9 Hypothyroidism, unspecified; E86.0 Dehydration; R42 Dizziness and giddiness; F41.9 Anxiety disorder, unspecified; F32.A Depression, unspecified; Z85.850 Personal history of malignant neoplasm of thyroid; Z88.8 Allergy status to other drugs, medicaments and biological substances
CPT/HCPCS: 36415; 70450; 71045; 80048; 80053; 81001; 82550; 82553; 84484; 85025; 85610; 85730; 93306; 93880; 94799; 99251; 99284; G0378; J0360; J7030